=== PATIENT | female | born 1985 | race Caucasian/White ===

== ENCOUNTER 2019-09-06 14:34 | Inpatient (IN) | payer BC ==
[~2019-09-06] VITALS: Ht 175.3 cm; Wt 89.1 kg
[2019-09-06 15:41] LABS: BASO % 0.3 % (0.0-2.0); GRAN # 7.8 (1.4-6.5); GRAN % 87.5 % (42.2-75.2); HEMATOCRIT 34.9 % (37.0-47.0); HEMOGLOBIN 12.2 g/dl (12.5-16.0); LYMPH # 0.7 (1.2-3.4); LYMPH % 7.7 % (20.0-51.0); MEAN CELL VOLUME 89 fl (80.0-100.0); MEAN CORPUSCULAR HEMOGLOBIN 31 pg (27.0-31.0); MEAN CORPUSCULAR HGB CONC 35 g/dl (33.0-37.0); MEAN PLATELET VOLUME 9.4 fl (7.4-10.4); MONO # 0.4 (0.1-0.6); MONO % 4.4 % (1.7-9.3); PLATELET COUNT 214 K/mm3 (130-400); RED BLOOD COUNT 3.91 M/mm3 (4.10-5.30); REDCELL DISTRIBUTION WIDTH-CV 11.9 % (11.5-14.5)
--- NOTE | 2019-09-06 21:20 | NUR ---
Pt arrived via bed to surgical unit room 350.
[2019-09-06 21:34] VITALS: BP 94/45; PULSE 55; TEMP 97.6
[2019-09-06 21:49] VITALS: BP 105/49; PULSE 79
--- NOTE | 2019-09-06 22:00 | NUR ---
A/O x4. c/o pain to abdominal surgical site, rate 3-4/10 at rest, tolerable. Pt had water and jello. Few minutes after eating jello, pt vomited but states it was d/t jello being sugar-free, pt did not want prn nausea med. PRN pain med adminsitered as requested. IV to LH intact, dressing CDI. IVF Dc'd, pt tolerating po fluids well. Dressing to lower abdomen intact w/o complications. Needs met at this time. call light within reach.
[2019-09-06 22:04] VITALS: BP 104/50; PULSE 70; TEMP 97.5
[2019-09-06 22:19] VITALS: BP 92/46; PULSE 60
[2019-09-06 22:49] VITALS: BP 93/48; PULSE 63
[2019-09-06 23:19] VITALS: BP 96/50; PULSE 74
[2019-09-07] VITALS (7 sets, daily range): BP systolic 94–112; BP diastolic 44–69; PULSE 55–66; TEMP 97.4–98.3
--- NOTE | 2019-09-07 05:59 | NUR ---
Pt had snacks throughout the night w/o issue. Pain meds given x1 on this shift. States has tolerable pain of 3/10 at rest. Sutton drained and charted. Needs met. Call light within reach.
--- NOTE | 2019-09-07 07:09 | NUR ---
REPORT GIVEN TO DONATO FIGUEROA
--- NOTE | 2019-09-07 09:14 | NUR ---
Sutton catheter removed at this time.
[2019-09-07] MEDS ORDERED: PERCOCET 325 MG1 TA2 PO (10:17)
[2019-09-07] MEDS ORDERED: IBU600 MG PO (10:17)
--- NOTE | 2019-09-07 11:25 | NUR ---
First visit from the program management specialist. No needs right now.
--- NOTE | 2019-09-07 14:17 | NUR ---
Skip Tracer met with patient to discuss discharge planning. Patient lives in [place], [place] with her parents, Lester (ph#[phone]) and Leyla. Patient sees MARCUS Bolanos for primary care in [place]. Patient states she mainly uses [facility] in [place] for medications but if she needs any medications while in [place], she uses [facility]. Patient does not use any DME and is independent with [facility]. Patient does not have Advance Directives and was not interested in setting them up at this time. Patient plans to return home at discharge. No needs identified at this time.
--- NOTE | 2019-09-07 17:07 | NUR ---
Discharge instructions reviewed with patient, verbalized understanding. Discharged via wheelchair to auto/home with parent at 1700.
== END 2019-09-07 17:00 | disposition home or self-care (01) | DRG 742 ==
LOC: COL.ER 14:34 → SURG 20:03
PROVIDERS: Family Medicine; ADMIT Obstetrics & Gynecology
PROC: 0UB10ZZ Excision of Left Ovary, Open Approach (ICD-10-PCS; principal; 2019-09-06 19:00)
DX: D27.1 Benign neoplasm of left ovary (principal); N83.512 Torsion of left ovary and ovarian pedicle; Z20.828 Contact with and (suspected) exposure to other viral communicable diseases; Z88.1 Allergy status to other antibiotic agents
CPT/HCPCS: A4314; J0690; J1100; J1170; J1885; J2270; J2405; J2704; J2710; J3010; J7120